=== PATIENT | female | born 2005 | race Hispanic/Latino ===

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

== ENCOUNTER 2023-08-16 16:04 | Outpatient (CLI) | payer OTHER, SELFPAY ==
[2023-08-16 18:57] LABS: Hepatitis B Surface Antigen Negative (Negative)
[2023-08-16 19:14] LABS: Hepatitis B Surface Anti Res Negative; Hepatitis C Virus Antibody Negative (Negative)
[2023-08-18 01:58] LABS: Hepatitis B Core Ab Total NON-REACTIVE (NON-REACTIVE)
[2023-08-18 18:44] LABS: NIL 0.02 IU/mL; Quantiferon TB Plus, 1T NEGATIVE (NEGATIVE); TB1-NIL 0.03 IU/mL; TB2-NIL 0.09 IU/mL
== END 2023-08-16 16:05 | disposition home or self-care (01) ==
LOC: ANHLAB 16:14
PROVIDERS: PCP Nurse Practitioner Family; Visit Provider Physician Assistant
DX: L73.2 Hidradenitis suppurativa (principal)
CPT/HCPCS: 36415; 86480; 86704; 86706; 86803; 87340